=== PATIENT | male | born 1995 | race Caucasian/White ===

== ENCOUNTER 2017-11-06 16:49 | Emergency (ER) | payer OTHER ==
--- NOTE | 2017-11-06 17:20 | ED Physician Documentation ---
PD HPI FOCAL NEURO - Stated complaint Stated Complaint: POS SZ/TWITCHING - Chief complaint Chief Complaint: Neuro - History obtained from History obtained from: Patient - History of Present Illness Timing - onset: Other (For the last 2 weeks he has new twitching of the area around his eyes and occasional choking sensation. He had never had it before. He is not under a lot of stress. His boss is with him shows me a video, it looks like facial tics, he does not lose consciousness and he remembers all of it. It is symmetric.) Review of Systems Constitutional: denies: Fever, Chills Nose: denies: Rhinorrhea / runny nose, Congestion Cardiac: denies: Chest pain / pressure, Palpitations PD PAST MEDICAL HISTORY - Present Medications Home Medications: Ambulatory Orders Medication Instructions Recorded Confirmed Loratadine [Claritin] 5 mg PO 11/06/17 - Allergies Allergies/Adverse Reactions: Allergies Allergy/AdvReac Type Severity Reaction Status Date / Time No Known Drug Allergies Allergy Verified 11/06/17 17:01 PD ED PE NORMAL - Vitals Vital signs reviewed: Yes - General General: Alert and oriented X 3, No acute distress - HEENT HEENT: PERRL, EOMI, Pharynx benign - Neck Neck: Supple, no meningeal sign, No bony TTP - Neuro Neuro: Alert and oriented X 3, steward dishwasher 2-12 intact, Other (He occasionally has basically periorbital spasm bilaterally where he clenches his eyes shut briefly , he does not lose consciousness and it is symmetric. It looks more like a tic than anything else.) Eye Opening: Spontaneous Motor: Obeys Commands Verbal: Oriented GCS Score: 15 Results - Vitals Vitals: Vital Signs - 24 hr 11/06/17 11/06/17 16:58 18:38 Temperature 36.3 C L Heart Rate 86 85 Respiratory 16 16 Rate Blood Pressure 135/75 H 126/72 O2 Saturation 98 97 Oxygen O2 Source Room air - Labs Labs: Laboratory Tests 11/06/17 11/06/17 17:29 17:29 WBC 7.9 RBC 5.21 Hgb 14.6 Hct 42.3 MCV 81.1 MCH 28.0 MCHC 34.5 RDW 13.0 Plt Count 278 MPV 7.4 Neut # (Auto) 3.8 Lymph # (Auto) 3.2 [place] # (Auto) 0.7 Eos # (Auto) 0.2 Baso # (Auto) 0.1 Absolute Nucleated RBC 0.00 Nucleated RBC % 0.1 Sodium 137 Potassium 3.8 Chloride 101 Carbon Dioxide 27 Anion Gap 9.0 BUN 15 Creatinine 0.9 Estimated GFR (MDRD) 107 Glucose 107 H Calcium 9.4 Total Bilirubin 0.7 AST 28 ALT 57 Alkaline Phosphatase 68 Total Protein 7.9 Albumin 4.3 Globulin 3.6 Albumin/Globulin Ratio 1.2 Lipase 32 - Rads (name of study) CT Head Radiology: EMP read contemporaneously (normal) PD MEDICAL DECISION MAKING - ED course ED course: This is a 22-year-old with new onset what look like tics. I do not think they could be seizures as they are bilateral without loss of consciousness. 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 Discharge Date/Time: 11/06/17 18:46
[2017-11-06 17:34] LABS: BASOPHILS # (AUTO) 0.1 10^3/uL (0.0-0.1); BASOPHILS % (AUTO) 0.9 %; EOSINOPHILS # (AUTO) 0.2 10^3/uL (0.0-0.7); EOSINOPHILS % (AUTO) 2.9 %; HGB - HEMOGLOBIN 14.6 g/dL (14.0-18.0); LYMPHOCYTES # (AUTO) 3.2 10^3/uL (1.5-3.5); MEAN CORPUSCULAR HGB CONC 34.5 g/dL (32.0-36.0); MEAN CORPUSCULAR VOLUME 81.1 fL (80.0-94.0); MEAN PLATELET VOLUME 7.4 fL (7.4-11.4); MONOCYTES # (AUTO) 0.7 10^3/uL (0.0-1.0); MONOCYTES % (AUTO) 8.4 %; NEUTROPHILS # (AUTO) 3.8 10^3/uL (1.5-6.6); NEUTROPHILS % (AUTO) 47.8 %; PLT - PLATELET COUNT 278 10^3/uL (130-450); RED BLOOD COUNT 5.21 10^6/uL (4.70-6.10); WHITE BLOOD COUNT 7.9 x10^3/uL (4.8-10.8)
[2017-11-06 17:45] LABS: ALBUMIN 4.3 g/dL (3.2-5.5); ALBUMIN/GLOBULIN RATIO 1.2 (1.0-2.2); BILIRUBIN,TOTAL 0.7 mg/dL (0.2-1.0); CALCIUM 9.4 mg/dL (8.5-10.3); CREATININE 0.9 mg/dL (0.6-1.2); TOTAL PROTEIN 7.9 g/dL (6.7-8.2)
--- NOTE | 2017-11-06 18:14 | CT Report ---
Procedure Date: 11/06/2017 Accession Number: [id number] / [id number] Procedure: CT - Head W/O CPT Code: FULL RESULT: EXAM: CT HEAD EXAM DATE: 11/06/2017 06:02 PM. CLINICAL HISTORY: Facial tic. COMPARISON: None. TECHNIQUE: Multiaxial CT images were obtained from the foramen magnum to the vertex. Reformats: Coronal. IV contrast: None. In accordance with CT protocol optimization, one or more of the following dose reduction techniques were utilized for this exam: automated exposure control, adjustment of mA and/or KV based on patient size, or use of iterative reconstructive technique. FINDINGS: Parenchyma: No intraparenchymal hemorrhage. No evidence of mass, midline shift, or CT findings of infarction. Mroan-white differentiation is distinct. Extraaxial Spaces: Normal for age. No subdural or epidural collections identified. Ventricles: Normal in size and position. Sinuses and Orbits: Imaged paranasal sinuses, orbits, and mastoids show no significant abnormality. Bones: No evidence of fracture or calvarial defect. Other: None. IMPRESSION: No acute intracranial CT abnormality. RADIA
[2017-11-06 18:38] VITALS: BP 126/72
== END 2017-11-06 18:46 | disposition home or self-care (01) ==
LOC: ED 16:49
DX: F95.8 Other tic disorders (principal)
CPT/HCPCS: 36415; 70450; 80053; 83690; 85025; 87086; 99282; 99283

== ENCOUNTER 2019-09-25 21:43 | Emergency (ER) | payer OTHER ==
[2019-09-25 21:52] VITALS: BP 146/84
[2019-09-25 22:36] LABS: RAPID STREP SCREEN Negative (Negative)
[2019-09-25] MEDS ORDERED: AMOX/CLAV 875 MG/125 MG TABLET PO STA (23:20)
--- NOTE | 2019-09-25 23:57 | ED Physician Documentation ---
History of Present Illness - Stated complaint Stated Complaint: FEVER - Chief complaint Chief Complaint: General - History obtained from History obtained from: Patient - History of Present Illness Timing: How many days ago (2-3) Improved by: nothing Worsened by: no exacerbating factors - Additonal information Additional information: c/o 2-3 days fever, chills, diaphoresis, productive cough, sore throat Review of Systems Constitutional: reports: Fever, Chills, Sweats Ears: denies: Ear pain Throat: reports: Sore throat Cardiac: reports: Reviewed and negative Respiratory: reports: Cough. denies: Dyspnea, Wheezing GI: reports: Reviewed and negative PD PAST MEDICAL HISTORY - Past Medical History Cardiovascular: None Respiratory: None Neuro: None Endocrine/Autoimmune: None GI: None : None HEENT: None Psych: None Musculoskeletal: None Derm: None - Past Surgical History Past Surgical History: No - Present Medications Home Medications: Ambulatory Orders Medication Instructions Recorded Confirmed Amox/Clav 875/125 [Augmentin] 1 each PO Q12H #13 tablet 09/25/19 - Allergies Allergies/Adverse Reactions: Allergies Allergy/AdvReac Type Severity Reaction Status Date / Time No Known Drug Allergies Allergy Verified 09/25/19 21:52 - Social History Does the pt smoke?: Yes Smoking Status: Current some day smoker Does the pt drink ETOH?: Yes Does the pt have substance abuse?: No - Immunizations Immunizations are current?: Yes - POLST Patient has POLST: No PD ED PE NORMAL - Vitals Vital signs reviewed: Yes - General General: Alert and oriented X 3, No acute distress, Well developed/nourished - HEENT HEENT: Moist mucous membranes - Neck Neck: Supple, no meningeal sign - Cardiac Cardiac: RRR, No murmur - Respiratory Respiratory: No respiratory distress, Clear bilaterally - Abdomen Abdomen: Soft, Non tender PD ED PE EXPANDED - HEENT HEENT: Pharyngeal erythema, Tonsillar exudate Results - Vitals Vitals: Vital Signs - 24 hr 09/25/19 21:49 Temperature 35.5 C L Heart Rate 118 H Respiratory 18 Rate Blood Pressure 146/84 H O2 Saturation 97 Oxygen O2 Source Room air - Labs Labs: Laboratory Tests 09/25/19 22:20 Group A Strep Rapid Negative PD MEDICAL DECISION MAKING - ED course Complexity details: reviewed results, re-evaluated patient, considered differential, d/w patient Departure - Departure Disposition: Home, Self Care Clinical Impression: Pharyngitis Qualifiers: Pharyngitis/tonsillitis etiology: unspecified etiology Qualified Code(s): J02.9 - Acute pharyngitis, unspecified Condition: Good Instructions: ED Strep Pharyngitis Poss Prescriptions: Amox/Clav 875/125 [Augmentin] 1 each PO Q12H #13 tablet Discharge Date/Time: 09/25/19 23:24
== END 2019-09-25 23:24 | disposition home or self-care (01) ==
LOC: ED 21:43
DX: J02.9 Acute pharyngitis, unspecified (principal); R05 Cough; Z20.828 Contact with and (suspected) exposure to other viral communicable diseases; F17.200 Nicotine dependence, unspecified, uncomplicated
CPT/HCPCS: 81599; 87070; 87430; 99283; 99284; A9270

== ENCOUNTER 2021-05-18 20:11 | Emergency (ER) | payer OTHER ==
[2021-05-18] MEDS ORDERED: HYDROmorphone 1 MG/ML CARPUJECT IM STA (20:28)
--- NOTE | 2021-05-18 20:31 | ED Physician Documentation ---
History of Present Illness - Stated complaint Stated Complaint: RIGHT HIP PX - Chief complaint Chief Complaint: Ext Problem - Additonal information Additional information: 25-year-old male presents emergency department for evaluation of acute right hip pain. 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 There were no unusual or different activities today. When he got off of work and went home and was sitting he began feeling a deep ache in his right hip. He describes the pain is severe is unwilling to bear full weight on the leg. No fevers. Denies any falls or trauma. The hip and groin are painful with any movement passive or active. He denies any testicular or scrotal pain. Pain does not radiate and remains within the hip. No recent fevers. Review of Systems Constitutional: denies: Fever, Chills Ears: reports: Reviewed and negative Throat: reports: Reviewed and negative Cardiac: reports: Reviewed and negative Respiratory: reports: Reviewed and negative GI: reports: Reviewed and negative : reports: Reviewed and negative Skin: reports: Reviewed and negative Musculoskeletal: reports: Joint pain (right hip) Neurologic: reports: Reviewed and negative PD PAST MEDICAL HISTORY - Past Medical History Cardiovascular: None Respiratory: None Neuro: None Endocrine/Autoimmune: None GI: None : None HEENT: None Psych: None Musculoskeletal: None Derm: None - Past Surgical History Past Surgical History: No - Present Medications Home Medications: Ambulatory Orders Medication Instructions Recorded Confirmed HYDROcod/ACETAM 5/325 [[place] 5/325] 1 tablet PO BID PRN #10 tablet 05/18/21 Ibuprofen [Motrin] 600 mg PO Q6H PRN #30 tab 05/18/21 - Allergies Allergies/Adverse Reactions: Allergies Allergy/AdvReac Type Severity Reaction Status Date / Time No Known Drug Allergies Allergy Verified 05/18/21 20:19 - Social History Does the pt smoke?: Yes Smoking Status: Current some day smoker Does the pt drink ETOH?: Yes Does the pt have substance abuse?: No - Immunizations Immunizations are current?: Yes - POLST Patient has POLST: No PD ED PE EXPANDED - General General: Alert, Other (obese) - Cardiac Cardiac: Regular Rate, Radial strong equal, Pedal strong equal. No: Murmur Present - Respiratory Respiratory: Clear to ausultation alissa. No: Distress, Labored - Abdomen Abdomen: Normal Bowel sounds. No: Tender to palpation - Extremities Extremities: Right hip (no shortening, malrotation of the righ tleg. 2+ DP pulse. pain with palpation medially and laterally. no swelling, ecchymosis. 2+ femoral pulse. no LAD ) Results - Vitals Vitals: Vital Signs - 24 hr 05/18/21 20:15 Temperature 36.9 C Heart Rate 94 Respiratory 18 Rate Blood Pressure 138/83 H O2 Saturation 98 Oxygen O2 Source Room air - Rads (name of study) right hip/pelvis 2v Radiology: Final report received (Unremarkable radiographic exam of right hip.) PD MEDICAL DECISION MAKING - ED course Complexity details: reviewed results, re-evaluated patient, considered differential, d/w patient ED course: 25-year-old male presents the emergency department for sudden onset right hip pain. 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 He denies any falls or trauma there have been no fevers. Most of the pain in the hip is anterior and medial. He is able to bear partial weight. Given the lack of fevers recent infection my suspicion for septic arthritis is rather low. X-ray did not reveal an occult fracture And given lack of trauma will defer further imaging at this time. I do suspect that he has a hip sprain or possibly a labral tear. Patient was given a one-time dose of Decadron here in the ER. Will be r ecommended for ibuprofen over the weekend. Crutches to aid in ambulation. If not markedly improved on Friday may benefit from further evaluation through [facility]. He may need an MRI of the hip for further evaluation. Emergent return precautions were discussed for concerns of infection. Departure - Departure Disposition: Home, Self Care Clinical Impression: Acute right hip pain Condition: Stable Record reviewed to determine appropriate education?: Yes Instructions: ED Sprain Hip Prescriptions: Ibuprofen [Motrin] 600 mg PO Q6H PRN #30 tab PRN Reason: Pain HYDROcod/ACETAM 5/325 [[place] 5/325] 1 tablet PO BID PRN #10 tablet PRN Reason: Pain Comments: You are seen in the emergency department today for sudden pain in the right hip. We did not find any worrisome findings on your hip x-ray. Given the nature of your work with a lot of squatting, pushing and pulling I suspect that you have a hip sprain and/or possibly labral tear in the hip. You were given a one-time dose of oral steroid here in the emergency department that should help with pain over the next 2 to 3 days. I would like her to take ibuprofen with food 3 times a day for pain control. For severe pain you can use the Vicodin. We have given you crutches to help you get around. Use the Vicodin cautiously as it will make you more prone to falls. With a few days of rest and nonweightbearing of the hip I do anticipate that the pain is better. However it is important you follow-up closely with [facility]. You may benefit from further referral or evaluation. If symptoms are not markedly improving you may need an MRI of the hip which cannot be obtained through the emergency department. Return to the ER for fevers higher than 102, leg or hip swelling, any concerns of infection I am prescribing a short course of narcotic pain medication for you. These are potentially dangerous and addictive medications that should be used carefully. These medications may constipate you. Take an [id number] stool softener (docusate) twice daily with plenty of water while taking these medications. If you go 24 hours without a bowel movement, take [id number] miralax, per package instructions. Do not drink or drive while taking these medications. If you received narcotic or sedating medications while in the emergency department, do not drive for 24 hours. Store this medication in a safe, secure place and out of reach of children. It is a violation of federal law to give or sell this medication to another person or to use in a manner other than prescribed. The ED will not refill narcotic prescriptions, including prescriptions lost or stolen. To dispose of unwanted medications: 1. [facility] at [address] in [place] has a medication drop box. They accept prescription medications (in pill form) Friday through Friday 9:00 a.m. to 5:00 p.m. 2. The [facility] [place] [employer] accepts prescription medications (in pill form only) for disposal year round. Call for more information. 3. Contact the [facility] for the next [facility] sponsored prescription drug collection event. , [phone], or [phone]; Note that many narcotic pain relievers also contain Tylenol/acetaminophen. Please ensure that your total dose of acetaminophen from all sources does not ex ceed 3 g (3000 mg) per day. Your prescriptions [place] the Vicodin and the [place]
--- NOTE | 2021-05-18 20:45 | XRAY Report ---
PROCEDURE: Hip w/Pelvis 2-3V RT INDICATIONS: pain after running TECHNIQUE: AP pelvis with lateral view(s) of the right hip(s). COMPARISON: None. FINDINGS: Bones: No fractures or dislocations. Pelvic ring appears intact. No evidence of avascular necrosis of femoral head. No suspicious bony lesions. Soft tissues: The visualized bowel gas pattern is normal. No suspicious soft tissue calcifications. IMPRESSION: Unremarkable radiographic examination of right hip. Reviewed by: Carl Strong MD on 05/18/2021 8:44 PM PST Approved by: Carl Strong MD on 05/18/2021 8:44 PM PST Station ID: [id number]
[2021-05-18] MEDS ORDERED: DEXAMETHASONE 10 MG/ML VIAL PO STA (21:00)
[2021-05-18] MEDS ORDERED: CHERRY SYRUP 10 ML UDC PO ONE (21:00)
[2021-05-18 21:08] VITALS: BP 145/95
== END 2021-05-18 21:14 | disposition home or self-care (01) ==
LOC: ED 20:11
DX: M25.551 Pain in right hip (principal); F17.200 Nicotine dependence, unspecified, uncomplicated
CPT/HCPCS: 73502; 96372; 99282; 99284; A9270; J1170

== ENCOUNTER 2021-05-25 16:34 | Emergency (ER) | payer OTHER ==
[2021-05-25] MEDS ORDERED: KETOROLAC 15 MG/ML VIAL IVP STA (16:52)
--- NOTE | 2021-05-25 16:56 | ED Physician Documentation ---
PD HPI ABD PAIN - Stated complaint Stated Complaint: LT SIDE ABD PX/BLOOD IN URINE - Chief complaint Chief Complaint: Abd Pain - History obtained from History obtained from: Patient - Additional information Additional information: Sudden onset left lateral abdominal pain starting at 345 today while at rest with one episode of gross hematuria. No history of renal colic. He took some pain medication prior to arrival which was helpful. Review of Systems Ten Systems: 10 systems reviewed and negative Constitutional: denies: Fever, Chills GI: denies: Nausea, Vomiting, Constipation, Diarrhea : denies: Dysuria, Frequency PD PAST MEDICAL HISTORY - Past Medical History Cardiovascular: None Respiratory: None Neuro: None Endocrine/Autoimmune: None GI: None : None HEENT: None Psych: None Musculoskeletal: None Derm: None - Past Surgical History Past Surgical History: No - Present Medications Home Medications: Ambulatory Orders Medication Instructions Recorded Confirmed HYDROcod/ACETAM 5/325 [[place] 5/325] 1 tablet PO BID PRN #10 tablet 05/18/21 Ibuprofen [Motrin] 600 mg PO Q6H PRN #30 tab 05/18/21 Cefdinir 300 mg PO BID #20 cap 05/25/21 - Allergies Allergies/Adverse Reactions: Allergies Allergy/AdvReac Type Severity Reaction Status Date / Time No Known Drug Allergies Allergy Verified 05/25/21 16:43 - Social History Does the pt smoke?: Yes Smoking Status: Current some day smoker Does the pt drink ETOH?: Yes Does the pt have substance abuse?: No - Immunizations Immunizations are current?: Yes - POLST Patient has POLST: No PD ED PE NORMAL - Vitals Vital signs reviewed: Yes - General General: Alert and oriented X 3, Other (Uncomfortable) - Cardiac Cardiac: RRR, No murmur - Respiratory Respiratory: No respiratory distress - Abdomen Abdomen: Normal bowel sounds, Soft, Other (Mild left-sided abdominal tenderness without surgical signs) - Back Back: No CVA TTP, No spinal TTP - Derm Derm: Normal color, Warm and dry - Extremities Extremities: No edema, No calf tenderness / cord - Neuro Neuro: Alert and oriented X 3, Normal speech Results - Vitals Vitals: Vital Signs - 24 hr 05/25/21 05/25/21 16:39 19:45 Temperature 36.7 C Heart Rate 96 81 Respiratory 18 Rate Blood Pressure 144/98 H 146/102 H O2 Saturation 98 97 Oxygen O2 Source Room air - Labs Labs: Laboratory Tests 05/25/21 05/25/21 05/25/21 16:54 16:54 19:46 WBC 11.8 H RBC 5.17 Hgb 14.4 Hct 41.7 L MCV 80.7 MCH 27.9 MCHC 34.5 RDW 12.7 Plt Count 315 MPV 9.1 Neut # (Auto) 7.8 H Lymph # (Auto) 2.6 [place] # (Auto) 1.2 H Eos # (Auto) 0.2 Baso # (Auto) 0.0 Absolute Nucleated RBC 0.00 Nucleated RBC % 0.0 Sodium 136 Potassium 3.8 Chloride 101 Carbon Dioxide 25 Anion Gap 10.0 BUN 10 Creatinine 0.9 Estimated GFR (MDRD) 104 Glucose 109 H Calcium 8.9 Total Bilirubin 0.7 AST 22 ALT 43 Alkaline Phosphatase 61 Total Protein 8.2 Albumin 4.1 Globulin 4.1 Albumin/Globulin Ratio 1.0 Lipase 34 Urine Color RED/BLOODY Urine Clarity BLOODY Urine pH 7.0 Ur Specific [place] 1.025 Urine Protein 100 H Urine Glucose (UA) NEGATIVE Urine Ketones NEGATIVE Urine Occult Blood LARGE H Urine Nitrite POSITIVE H Urine Bilirubin NEGATIVE Urine Urobilinogen 1 (NORMAL) Ur Leukocyte Esterase NEGATIVE Urine RBC TNTC H Urine WBC 0-3 Ur Squamous Epith Cells NONE SEEN Urine Bacteria None Seen Ur Microscopic Review INDICATED Urine Culture Comments INDICATED PD MEDICAL DECISION MAKING - ED course ED course: 25-year-old gentleman comes in with hematuria and left flank pain which obviously would be most consistent with renal colic. He was given some ketorolac and a CT was done which was basically negative, during his time here though he had significant difficulty urinating despite significant amount of urine in his bladder on bedside ultrasound and eventually a Hsu was placed which he requested some anxiolysis for and was given some Versed and he had gross hematuria. This required hand irrigation to clear out the clots and eventually it became clear. Urinalysis consistent with UTI given the positive nitrites and he is started on antibiotics pending close follow-up. Departure - Departure Disposition: 01 Home, Self Care Clinical Impression: Hemorrhagic cystitis Condition: Good Record reviewed to determine appropriate education?: Yes Instructions: ED UTI Cystitis Male Prescriptions: Cefdinir 300 mg PO BID #20 cap Comments: I sent the prescription for the remainder of antibiotics [place] [facility] [place] You are seen today for flank pain and bloody urine. Of course the initial thought was that you would have a kidney stone, but we did a CAT scan and this was negative. During your time here though it became clear that you were retaining urine i.e. unable to urinate. A catheter was placed and subsequently found you to have a large volume of bloody urine in your bladder with clots that were obstructing the bladder. Your urinalysis and blood work would suggest this is related to a urinary tract infection and you were started on antibiotics for this. [place]. Return if you start to feel like he cannot urinate again. I woul d recommend that your doctor consider referring you to a urologist for consideration for cystoscopy and follow-up. We will culture your urine, the results should be done in 48-72 hours. If an antibiotic change is necessary we will call you. Return if worse in the meantime, especially if you develop increasing flank pain, fevers, or cannot keep down the medication.
[2021-05-25 16:58] LABS: BASOPHILS % (AUTO) 0.3 %; EOSINOPHILS # (AUTO) 0.2 10^3/uL (0.0-0.7); EOSINOPHILS % (AUTO) 1.4 %; HCT - HEMATOCRIT 41.7 % (42.0-52.0); HGB - HEMOGLOBIN 14.4 g/dL (14.0-18.0); LYMPHOCYTES # (AUTO) 2.6 10^3/uL (1.5-3.5); LYMPHOCYTES % (AUTO) 21.7 %; MEAN CORPUSCULAR HEMOGLOBIN 27.9 pg (27.0-31.0); MEAN CORPUSCULAR HGB CONC 34.5 g/dL (32.0-36.0); MEAN CORPUSCULAR VOLUME 80.7 fL (80.0-94.0); MEAN PLATELET VOLUME 9.1 fL (7.4-11.4); MONOCYTES # (AUTO) 1.2 10^3/uL (0.0-1.0); NEUTROPHILS # (AUTO) 7.8 10^3/uL (1.5-6.6); NEUTROPHILS % (AUTO) 66.3 %; PLT - PLATELET COUNT 315 10^3/uL (130-450); RED BLOOD COUNT 5.17 10^6/uL (4.70-6.10); RED CELL DISTRIBUTION WIDTH 12.7 % (12.0-15.0); WHITE BLOOD COUNT 11.8 x10^3/uL (4.8-10.8)
[2021-05-25 17:10] LABS: ALBUMIN 4.1 g/dL (3.2-5.5); BILIRUBIN,TOTAL 0.7 mg/dL (0.2-1.0); CALCIUM 8.9 mg/dL (8.5-10.3); CREATININE 0.9 mg/dL (0.6-1.2); POTASSIUM 3.8 mmol/L (3.5-5.0); TOTAL PROTEIN 8.2 g/dL (6.7-8.2)
--- NOTE | 2021-05-25 18:03 | CT Report ---
PROCEDURE: Abdomen/Pelvis WO INDICATIONS: L flank pain TECHNIQUE: Noncontrast 5 mm thick sections acquired from the diaphragms to the symphysis. 5 mm coronal and sagi ttal reformats were then performed. For radiation dose reduction, the following was used: automated exposure control, adjustment of mA and/or kV according to patient size. COMPARISON: Correlation is made with the recent hip plain films, 05/18/2021 FINDINGS: Image quality: Excellent. ABDOMEN: Lung bases: Lung bases are clear. Heart size is normal. Solid organs: Liver and spleen are normal in size. Gallbladder demonstrates no significant CT abnor mality. Pancreas is normal in contours. No adrenal nodules. Kidneys are normal in size, without hy dronephrosis or nephrolithiasis. Peritoneum and bowel: Unenhanced bowel loops demonstrate normal wall thickness and caliber. No free fluid or air. A normal appendix is incidentally noted. Nodes and vessels: No retroperitoneal or mesenteric adenopathy by size criteria. Aorta and inferior vena cava are normal in caliber. Miscellaneous: There is a trivial peribuccal hernia. PELVIS: Genitourinary: Bladder wall thickness is normal. Miscellaneous: No inguinal hernias or adenopathy. Bones: No suspicious bony lesions. No vertebral body compression fractures. IMPRESSION: Negative for kidney stones or obstructive uropathy. Reviewed by: Sohan Dao MD on 05/25/2021 5:02 PM [place] Approved by: Sohan Dao MD on 05/25/2021 5:02 PM [facility] Station ID: [id number]
[2021-05-25] MEDS ORDERED: MIDAZOLAM 2 MG/2 ML VIAL IVP STA (19:03)
[2021-05-25] MEDS ORDERED: LIDOCAINE 2% URO-JET 5 ML SYRINGE UR STA (19:03)
[2021-05-25 20:06] LABS: BILIRUBIN,URINE NEGATIVE (NEGATIVE); GLUCOSE, URINE (UA) NEGATIVE (NEGATIVE); KETONES,URINE (UA) NEGATIVE (NEGATIVE); LEUKOCYTE ESTERASE, URINE NEGATIVE (NEGATIVE); NITRITE,URINE POSITIVE (NEGATIVE); OCCULT BLOOD,URINE LARGE (NEGATIVE); PROTEIN,URINE 100 mg/dL (NEGATIVE); UROBILINOGEN,URINE 1 (NORMAL) E.U./dL (NORMAL)
[2021-05-25 20:09] LABS: CLARITY,URINE BLOODY (CLEAR)
[2021-05-25 20:13] LABS: BACTERIA,URINE None Seen /HPF (None Seen); RBC,URINE TNTC /HPF (0-5); SQUAMOUS EPITHELIAL CELL,UR NONE SEEN (<= Few); WBC,URINE 0-3 /HPF (0-3)
[2021-05-25] MEDS ORDERED: cefTRIAXone 1 GM in SODIUM CHLORIDE 0.9% MINIBAG 100 ML IV STA (20:57)
[2021-05-25] MEDS ORDERED: cefTRIAXone 1 GM VIAL ONE (21:16)
[2021-05-25 22:08] VITALS: BP 146/111
--- NOTE | 2021-05-25 22:43 | ED Physician Documentation ---
ED Addendum - Addendum Addendum: 05/25/21 22:[address] Garay left I was informed that the patient's pharmacy was not open until Friday. The patient requested that I send a prescription to [facility] in [place] therefore we canceled the original [place] [facility] [place] and sent to cefdinir to [facility]
== END 2021-05-25 22:07 | disposition home or self-care (01) ==
LOC: ED 16:34
DX: N30.91 Cystitis, unspecified with hematuria (principal); R33.9 Retention of urine, unspecified; F17.200 Nicotine dependence, unspecified, uncomplicated
CPT/HCPCS: 36415; 51702; 80053; 81001; 81003; 83690; 85025; 87086; 99284

== ENCOUNTER 2022-05-03 10:36 | Emergency (ER) | payer OTHER ==
[2022-05-03 10:50] VITALS: BP 121/89
[2022-05-03 11:50] LABS: B. PARAPERTUSSIS- RESP PCR PAN NOT DETECTED; B. PERTUSSIS- RESP PCR PANEL NOT DETECTED; C. PNEUMONIAE- RESP PCR PANEL NOT DETECTED; CORONAVIRUS 229E-RESP PCR NOT DETECTED; CORONAVIRUS HKU1-RESP PCR NOT DETECTED; CORONAVIRUS NL63-RESP PCR NOT DETECTED; CORONAVIRUS OC43-RESP PCR NOT DETECTED; HUMAN METAPNEUMOVIRUS NOT DETECTED; INFLUENZA A- RESP PCR PANEL NOT DETECTED; INFLUENZA B - RESP PCR PANEL NOT DETECTED; M. PNEUMONIAE- RESP PCR PANEL NOT DETECTED; PARAINFLUENZA VIRUS 1 NOT DETECTED; PARAINFLUENZA VIRUS 2 NOT DETECTED; PARAINFLUENZA VIRUS 3 NOT DETECTED; PARAINFLUENZA VIRUS 4 NOT DETECTED; RHINOVIRUS/ENTEROVIRUS DETECTED; RSV- RESP PCR PANEL NOT DETECTED; SARS-CoV-2 -RESP PCR PANEL NOT DETECTED
--- NOTE | 2022-05-03 12:47 | ED Physician Documentation ---
History of Present Illness - Stated complaint Stated Complaint: N/V/D CONGESTION - Chief complaint Chief Complaint: General - History obtained from History obtained from: Patient - Additonal information Additional information: Previously healthy 26-year-old gentleman has been sick for about 4 days with cough, sore throat, fevers and chills and body aches and headache. His remade has a similar illness. [place]. Review of Systems Constitutional: reports: Fever, Chills Nose: reports: Rhinorrhea / runny nose Throat: reports: Sore throat Respiratory: reports: Cough. denies: Dyspnea GI: reports: Vomiting, Diarrhea. denies: Abdominal Pain PD PAST MEDICAL HISTORY - Past Medical History Past Medical History: Yes Cardiovascular: None Respiratory: None Neuro: None Endocrine/Autoimmune: None GI: None : None HEENT: None Psych: None Musculoskeletal: None Derm: None - Past Surgical History Past Surgical History: No - Present Medications Home Medications: Ambulatory Orders Medication Instructions Recorded Confirmed HYDROcod/ACETAM 5/325 [Patton 5/325] 1 tablet PO BID PRN #10 tablet 05/18/21 Ibuprofen [Motrin] 600 mg PO Q6H PRN #30 tab 05/18/21 Cefdinir 300 mg PO BID #20 cap 05/25/21 Benzonatate [Tessalon] 200 mg PO TID PRN #20 cap 05/03/22 Loperamide [Imodium] 2 mg PO QID PRN #10 cap 05/03/22 Ondansetron Odt [Zofran] 4 mg TL Q6H PRN #10 tablet 05/03/22 - Allergies Allergies/Adverse Reactions: Allergies Allergy/AdvReac Type Severity Reaction Status Date / Time No Known Drug Allergies Allergy Verified 05/03/22 10:50 - Social History Does the pt smoke?: Yes Smoking Status: Current every day smoker Does the pt drink ETOH?: Yes Does the pt have substance abuse?: No - Immunizations Immunizations are current?: Yes - POLST Patient has POLST: No PD ED PE NORMAL - Vitals Vital signs reviewed: Yes (Mild resting tachycardia) - General General: Alert and oriented X 3, No acute distress - HEENT HEENT: Other (Red tonsillar pillars and uvula without exudates) - Neck Neck: Supple, no meningeal sign, No bony TTP - Cardiac Cardiac: RRR, No murmur - Respiratory Respiratory: No respiratory distress, Clear bilaterally - Abdomen Abdomen: Normal bowel sounds, Soft, Non tender - Back Back: No CVA TTP - Derm Derm: Normal color, Warm and dry - Neuro Neuro: Alert and oriented X 3, Normal speech Results - Vitals Vitals: Vital Signs - 24 hr 05/03/22 10:47 Temperature 36.5 C Heart Rate 108 H Respiratory 20 Rate Blood Pressure 121/89 H O2 Saturation 97 Oxygen O2 Source Room air - Labs Labs: Laboratory Tests 05/03/22 10:52 Nasal Adenovirus (PCR) NOT DETECTED Nasal B. parapertussis DNA (PCR) NOT DETECTED Nasal Coronavir 229E PCR NOT DETECTED Nasal Coronavir HKU1 PCR NOT DETECTED Nasal Coronavir NL63 PCR NOT DETECTED Nasal Coronavir OC43 PCR NOT DETECTED Nasal Enterovir/Rhinovir PCR DETECTED A Nasal Influenza B PCR NOT DETECTED Nasal Influenza A PCR NOT DETECTED Nasal Parainfluen 1 PCR NOT DETECTED Nasal Parainfluen 2 PCR NOT DETECTED Nasal Parainfluen 3 PCR NOT DETECTED Nasal Parainfluen 4 PCR NOT DETECTED Nasal RSV (PCR) NOT DETECTED Nasal B.pertussis DNA PCR NOT DETECTED Nasal C.pneumoniae (PCR) NOT DETECTED Cristobal Human Metapneumo PCR NOT DETECTED Nasal M.pneumoniae (PCR) NOT DETECTED Nasal SARS-CoV-2 (PCR) NOT DETECTED PD Medical Decision Making - ED course ED course: 26-year-old gentleman with viral respiratory infection, [employer] PCR panel positive for for rhinovirus/enterovirus which is explanatory. Departure - Departure Disposition: 01 Home, Self Care Clinical Impression: Enterovirus infection Condition: Good Record reviewed to determine appropriate education?: Yes Instructions: ED Viral Syndrome Prescriptions: Loperamide [Imodium] 2 mg PO QID PRN #10 cap PRN Reason: Diarrhea Benzonatate [Tessalon] 200 mg PO TID PRN #20 cap PRN Reason: Cough Ondansetron Odt [Zofran] 4 mg TL Q6H PRN #10 tablet PRN Reason: Nausea / Vomiting Comments: Your PCR panel was positive for rhinovirus/enterovirus which is a flulike illness. You will get better, but return for new or worsening symptoms. I am prescribing some medication for the cough, diarrhea, and nausea. Follow-up with your PCM on Friday if not better. Forms: Activity restrictions
== END 2022-05-03 12:48 | disposition home or self-care (01) ==
LOC: ED 10:36
DX: J98.8 Other specified respiratory disorders (principal); B34.1 Enterovirus infection, unspecified; Z20.822 Contact with and (suspected) exposure to COVID-19
CPT/HCPCS: 87633; 99283

== ENCOUNTER 2022-11-07 17:00 | Emergency (ER) | payer OTHER ==
--- NOTE | 2022-11-07 17:19 | ED Physician Documentation ---
PD HPI SKIN - Stated complaint Stated Complaint: SPIDER BITE - Chief complaint Chief Complaint: Wound - History obtained from History obtained from: Patient - History of Present Illness Timing - onset: How many days ago (several) Timing - duration: Days Timing - details: Gradual onset, Still present (was getting bigger each day and today in shower it draine fluid/purulence. Less painful here than prior to dtdaoy.) Location: Other (right armpit distal to the axilla per se.) Quality / character: Painful, Discolored (red), Raised Associated symptoms: No: Fever, Myalgias Contributing factors: Other (he is not aware of insect bite per se. Considers if pimle or normal skin lesions initially.) Review of Systems Constitutional: denies: Fever, Chills PD PAST MEDICAL HISTORY - Past Medical History Cardiovascular: None Respiratory: None Neuro: None Endocrine/Autoimmune: None GI: None : None HEENT: None Psych: None Musculoskeletal: None Derm: None - Past Surgical History Past Surgical History: No - Present Medications Home Medications: Ambulatory Orders Medication Instructions Recorded Confirmed Levothyroxine Sodium [Synthroid] 50 mcg PO DAILY 11/07/22 11/07/22 Levothyroxine Sodium [Synthroid] 200 mcg PO DAILY 11/07/22 11/07/22 Mupirocin 2% Oint [Bactroban 2% 1 applic TOP TID #15 gm 11/07/22 Oint] Sulfamethox/Trimeth 800/160 1 each PO BID #12 tablet 11/07/22 [Bactrim Ds 800/160] - Allergies Allergies/Adverse Reactions: Allergies Allergy/AdvReac Type Severity Reaction Status Date / Time No Known Drug Allergies Allergy Verified 11/07/22 17:11 - Social History Does the pt smoke?: Yes Smoking Status: Current every day smoker Does the pt drink ETOH?: Yes Does the pt have substance abuse?: No - Immunizations Immunizations are current?: Yes - POLST Patient has POLST: No PD ED PE NORMAL - Vitals Vital signs reviewed: Yes - General General: Alert and oriented X 3, No acute distress, Well developed/nourished - Cardiac Cardiac: RRR, No murmur - Respiratory Respiratory: Clear bilaterally - Back Back: No CVA TTP - Derm Derm: Normal color, Warm and dry, Other (right medial upper arm just distal to the axilla itself with rounded red tender skin sore/absess that is mainly deflated without fluctuanc. Surrounding redness and tender though.) Results - Vitals Vitals: Oxygen O2 Source Room air PD Medical Decision Making - ED course Complexity details: considered differential (developing abscess under right upper arm, that drained at home today. Presume might improved on own but still have infected apearance so with antibiotics too. ), d/w patient Departure - Departure Disposition: Home, Self Care Clinical Impression: Axillary abscess Condition: Stable Record reviewed to determine appropriate education?: Yes Instructions: ED Staph Infec Abx Tx Only Prescriptions: Sulfamethox/Trimeth 800/160 [Bactrim Ds 800/160] 1 each PO BID #12 tablet Mupirocin 2% Oint [Bactroban 2% Oint] 1 applic TOP TID #15 gm Comments: Can be hard to say the initial irritation or effect on the skin that allow germs into the area. It does look like a small skin abscess at this point. It is good that it is draining some already as that is a good portion of it getting better. We will continue with oral and topical antibiotics over the next several days until this well resolves. Bactrim antibiotic twice daily for the next 4 to 6 days. Mupirocin topical antibiotic 2-3 times daily to the area. Tylenol ibuprofen if needed for pains. Recheck if not improving well over the next several days and resolved by a week at most. I sent your prescriptions to [facility] pharmacy. Discharge Date/Time: 11/07/22 17:40
[2022-11-07 17:20] VITALS: BP 144/90
[2022-11-07] MEDS ORDERED: SULFAMETH/TRIMETH DS 800/160 MG TABLET PO STA (17:30)
== END 2022-11-07 17:40 | disposition home or self-care (01) ==
LOC: ED 17:00
DX: L02.411 Cutaneous abscess of right axilla (principal); F17.200 Nicotine dependence, unspecified, uncomplicated
CPT/HCPCS: 99282; 99283; A9270

== ENCOUNTER 2022-11-19 10:09 | Outpatient (CLI) | payer OTHER ==
--- NOTE | 2022-11-19 10:45 | Sleep Patient Instructions ---
Sleep Center Visit Summary - Patient Visit Information Reason for Visit: Initial consult for evaluation of sleep disordered breathing and other sleep issues. - Patient Instructions Instructions Attached: Sleep Study, Sleep Clinic Visit, Sleep Study Home Monitor Additional Instructions: You will be completing a sleep study, either an in-lab polysomnography (PSG) or home sleep study (HST). You will follow-up in the sleep care office after the sleep study is completed to hear the results and talk about therapy, if needed. You will be called by our office staff to schedule this appointment, but you may contact us with any questions. - Clinic Information Contact: [facility] [address] [place] [address] [email or web address] T: [phone]
--- NOTE | 2022-11-19 10:51 | SLEEP CARE CONSULTATION ---
Information from patient questionnaire entered by Rita Still. I have reviewed and concur with the information entered by Rita Still. This document represents the service I personally performed and the decisions made by me, Danyell Carter ARNP. History of Present Illness Service Date and Time: 11/19/2022 1009 Reason for Visit: New patient Chief Complaint: reports: Unrefreshed sleep, Snoring Date of Onset: 2YRS Usual bedtime: 0300 Time it takes to fall asleep: 30MIN Snores at night: Yes Observed to quit breathing while asleep: No Sleeps alone due to snoring: No Number of times waking at night: 1 Reasons for waking at night: denies: Choking, Snoring, Gasping for air Toss, Turn, or Twitch while sleeping: Yes Recalls having dreams: Yes Usually gets out of bed at: 5948-9865 Feels refreshed in the morning: No (occasionally will feel rested) Morning headache: No Sleepy or fatigued during the day: Yes Ever fallen asleep while driving: No Takes day naps: No Prior sleep studies: Yes Year and Where: 07/13/20 [facility]- split night Type of Sleep Study: Polysomnography Additional HPI information: I had the pleasure of seeing BLAISE LOPEZ today regarding the possibility of him having a sleep disorder. His current complaints are unrefreshed sleep and snoring. He was previously diagnosed with sleep apnea in 06/2020 through [facility], a split night showed severe obstructive sleep apnea with an AHI 36.8 and pablo oxygen of 54%. His titration showed optimal control of apneas at 16 cmH2O. He was never set up on a CPAP. 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 He states his only changes are that he is no longer "falling out of bed" or sleep walking. He sleeps alone so he does not know if he is having pauses in breathing. He knows he snores and does not feel refreshed when getting up in the morning. He says his weight has fluctuated since his last sleep study but he thinks he is down right now. 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 Patient is Single and lives in . Have you smoked in the past 12 months: No (Vaping but working on quitting) Years of smokin Quit date: 2019 Alcohol use: Yes Alcohol amount and frequency: 1-2 ONCE A MONTH Caffeine use: Yes Caffeine amount and frequency: 1-2 A DAY Family History Family history of sleep disordered breathing: Yes Family Hx Sleep Apnea: Mother: Snoring, Father: Snoring, Sibling: Snoring Allergies and Home Medications Known drug allergies: No Drug allergies reviewed: Yes Home medication list reviewed: Yes Allergy and home medication list: Allergies No Known Drug Allergies Allergy (Verified 11/18/22 15:11) Medications: Synthroid 275 mcg daily Green Tea vitamins Review of Systems Weight gain over past 5 years: 65 Cardiovascular: denies: high blood pressure Respiratory: denies: shortness of breath Gastrointestinal: denies: heartburn Neurological: denies: headaches, head trauma Psychiatric: denies: anxiety, depression Ear/Nose/Throat: reports: wisdom teeth removed. denies: injury to nose, tonsil lectomy Endocrine: reports: thyroid disease Physical Exam Vital signs obtained and entered by: RITA Gallego MA Blood Pressure: 118/76 (LEFT ARM) Cuff size: regular Heart Rate: 84 O2 Saturation: 96 Height: 5 ft 9 in Weight: 318 lb 12.8 oz Body Mass Index: 47.0 BMI Classification: Morbidly Obese Neck circumference: 20.5 Mouth and throat: narrow oropharynx Soft palate: normal Hard palate: normal Uvula: normal Uvula visualization: 25% Mallampati Class III Tongue: enlarged in size with teeth prado on lateral edges Tonsils: 2+ Neck: normal w/o lymphadenopathy or thyromegaly Heart: regular rate and rhythm Lungs: clear bilaterally Impression and Plan 1. Suspected Obstructive Sleep Apnea-Hypopnea Syndrome, as previously diagnosed and as suggested by a history of loud and irregular snoring and unrefreshed sleep. Narrow oropharynx and obesity are common predisposing factors for obstructive sleep apnea-hypopnea syndrome. I recommend proceeding to polysomnography to confirm the diagnosis and to assess severity. If the patient has significant sleep disordered breathing, a manual CPAP titration study will also be performed to find the optimal treatment pressure. I informed the patient of what the sleep studies involve and after some discussion, obtained agreement to proceed. The pathophysiology of obstructive sleep apnea-hypopnea syndrome was discussed with the patient and health risks of cardiovascular and cerebrovascular disease if not treated. 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 Patient agreed to plan. * Schedule polysomnography +- manual CPAP titration study and return in 1-2 weeks after the study to discuss result and initiate therapy. * Avoid long distance driving or driving when feeling sleepy. * Avoid alcohol, sedative and muscle relaxant around bedtime. * Attempt to lose weight. * Review instructions provided by trained office staff on how to prepare for the sleep study. * Return for follow-up after sleep study completed. Counseling Topics: Weight loss health impact Visit Type: In Office Time Spent with Patient (minutes): 31 Provider Statement: I spent 100% of the Face to Face Visit with the patient with greater than 50% spent counseling the patient and coordination of care.
[2022-11-19 10:53] VITALS: BP 118/76
== END 2022-11-19 10:10 | disposition home or self-care (01) ==
LOC: SC 10:09
PROVIDERS: ATTEND Nurse Practitioner Family
DX: G47.33 Obstructive sleep apnea (adult) (pediatric) (principal); E66.01 Morbid (severe) obesity due to excess calories; F17.200 Nicotine dependence, unspecified, uncomplicated; Z68.42 Body mass index [BMI] 45.0-49.9, adult
CPT/HCPCS: 99203; 99212

== ENCOUNTER 2023-01-28 19:21 | Outpatient (CLI) | payer OTHER | END 2023-01-28 19:22 | disposition home or self-care (01) | LOC: SC 19:21 | PROVIDERS: ATTEND Nurse Practitioner Family | DX: G47.33 Obstructive sleep apnea (adult) (pediatric) (principal); E66.01 Morbid (severe) obesity due to excess calories; Z68.42 Body mass index [BMI] 45.0-49.9, adult | CPT/HCPCS: 95810 ==

== ENCOUNTER 2023-03-18 13:51 | Outpatient (CLI) | payer OTHER ==
--- NOTE | 2023-03-18 14:17 | Sleep Patient Instructions ---
Sleep Center Visit Summary - Patient Visit Information Reason for Visit: Sleep study followup - Patient Instructions Instructions Attached: CPAP Dc, CPAP Additional Instructions: You are being started on CPAP therapy with pressure setting at 4-15 cmH2O. You will need to call the sleep care office to set up your follow up once you have your APAP machine and we will schedule a visit to check compliance and response to therapy at that time. You may call the office with any concerns about pressure feeling too low or too much for adjustment, if needed. You should contact DME supplier for any questions or concerns about mask or equipment. Please call office to schedule a follow up appointment in the sleep care office one month after obtaining new device. - Clinic Information Contact: [facility] [address] [place] [address] [email or web address] T: [phone]
--- NOTE | 2023-03-18 14:20 | SLEEP CARE CONSULTATION ---
Information from patient questionnaire entered by Rita Still. I have reviewed and concur with the information entered by Rita Still. This document represents the service I personally performed and the decisions made by , Danyell Carter ARNP. History of Present Illness Service Date and Time: 03/18/2023 1351 Initial [place] Sleepiness Scale score: 5 (11/19/22) Current [place] Sleepiness Scale score: 5 (03/18/23) Additional HPI information: BLAISE LOPEZ returns for follow up and results of the recently performed polysomnography. The sleep study showed severe obstructive sleep apnea with an average AHI of 33 and pablo oxygen saturation of 70%. I explained the pathophysiology behind obstructive sleep apnea. We then spent quite a bit of time discussing different treatment options. For mild obstructive sleep apnea, surgery and oral appliance are alternatives to nasal CPAP therapy but in moderate or severe cases, nasal CPAP is the most effective and reliable treatment. I reviewed the impact of weight changes on sleep apnea and strongly recommended losing weight. After some discussion, the patient opted to go with the nasal CPAP therapy. Nasal autoCPAP set at 4-15 cmH20 will be ordered with rationale explained. A manual titration study will be ordered if unable to find optimal pressure with office adjustments. I explained how CPAP machine works and what to expect when using the machine. Using CPAP every night in order to get used to it was emphasized. Patient advised to put CPAP mask on before getting into bed so as not to fall asleep without CPAP. To assist acclimation to CPAP use, it could also be used for a short time during day while reading or watching TV. The patient was instructed to call the CPAP supplier to discuss any mechanical problem that may occur. If the mask given is uncomfortable or is difficult to keep on through the night even with adjustment, contact the CPAP supplier as many will replace with another mask style if notified before 30 days. If snoring or perceives is not getting enough air or too much air from the machine, notify this office. Patient counseled not drink alcohol less than 4 hours before bedtime as it can increase snoring and apnea. Patient was cautioned about risks of drowsy driving until sleepiness symptoms resolve. Patient denies drowsy driving. Sleep Study - Results Type of Sleep Study: Polysomnography (COMPLETED 01/28/23) Prior sleep studies: Yes Year and Where: 07/13/20 [facility]- split night Polysomnography/Home Sleep Study results: IMPRESSION: The quality of the study is good. The patient had normal sleep efficiency. The sleep architecture was abnormal for sleep fragmentation and reduced amount of time spent in slow wave sleep (N3). Respiratory monitoring showed severe obstructive sleep apnea-hypopnea (AHI = 33.0) associated with frequent arousals, oxyhemoglobin desaturation and moderate hypoxia (pablo oxygen saturation of 70 %). Baseline oxygen saturation was normal. The respiratory events occurred mainly during supine sleep (supine AHI = 119.0; non-supine = 18.14). Snore was moderate to loud in intensity. There was no significant periodic leg movement of sleep. Cardiac rhythm was normal sinus rhythm without significant arrhythmia. No abnormal behavior (parasomnia) observed during the night. Allergies and Home Medications Known drug allergies: No Drug allergies reviewed: Yes Home medication list reviewed: Yes (no changes) Allergy and home medication list: Allergies No Known Drug Allergies Allergy (Verified 03/17/23 10:02) Review of Systems Review of systems same as previous: Yes (NO CHANGE) Physical Exam Vital signs obtained and entered by: RITA Gallego MA Blood Pressure: 122/70 (LEFT ARM) Cuff size: regular Heart Rate: 109 O2 Saturation: 94 Height: 5 ft 10 in Weight: 325 lb 9.6 oz Body Mass Index: 46.7 BMI Classification: Morbidly Obese Impression and Plan 1. Obstructive Sleep Apnea-Hypopnea Syndrome, severe, with lowest oxygen saturation of 70%. Obviously this is the cause of the patients symptoms of unrefreshed sleep, and excessive daytime sleepiness. As mentioned above, the patient will be started on nasal autoCPAP therapy with pressure set at 4-15 cmH2 O. A manual titration study will be completed if unable to find optimal treatment pressure with office adjustments. Compliance guidelines also reviewed. A copy of compliance guidelines will be given for reference at check out. Because the apnea is more severe supine, I instructed to avoid sleeping supine using pillow positioning until able to start CPAP use. 2. Hypoxemia, moderate, with a pablo oxygen saturation of 70% and 59.6 minutes spent under 90%. The baseline oxygen saturation was normal with an average oxygen saturation of 92%. 3. Obesity, unspecified. Currently patients BMI is 46.7. Obesity increases the risk of apnea, CPAP pressure requirements and overall health risks especially cardiovascular and diabetes. Thus patient is advised to lose weight. * Nasal auto CPAP therapy, pressure at 4-15 cm H2O. * Attempt to lose weight. * Avoid alcohol consumption near bedtime. * Avoid supine sleep until using CPAP. * The patient is again cautioned about driving until sleepiness completely resolves. * Return one month after CPAP obtained. I will assess response to therapy and compliance at that time. Counseling Topics: Weight loss health impact Prescriptions: Auto CPAP Visit Type: In Office Time Spent with Patient (minutes): 20 Provider Statement: I spent 100% of the Face to Face Visit with the patient with greater than 50% spent counseling the patient and coordination of care.
[2023-03-18 14:21] VITALS: BP 122/70; O2SAT 94
== END 2023-03-18 13:52 | disposition home or self-care (01) ==
LOC: SC 13:51
PROVIDERS: ATTEND Nurse Practitioner Family
DX: G47.33 Obstructive sleep apnea (adult) (pediatric) (principal); R09.02 Hypoxemia; E66.01 Morbid (severe) obesity due to excess calories; Z68.42 Body mass index [BMI] 45.0-49.9, adult
CPT/HCPCS: 99212; 99213

== ENCOUNTER 2023-07-11 09:19 | Outpatient (CLI) | payer OTHER ==
--- NOTE | 2023-07-11 09:53 | Sleep Patient Instructions ---
Sleep Center Visit Summary - Patient Visit Information Reason for Visit: First compliance follow-up - Patient Instructions Additional Instructions: You were here for follow up of CPAP therapy. You will be continued on CPAP therapy with pressure at 7-10 cmH2O. Please let us know if the pressure change is uncomfortable and we can make further adjustments of the pressure. You should follow up with sleep care in 1-2 months. You may contact us sooner for any questions or concerns. - Clinic Information Contact: [facility] [address] [place] [address] [email or web address] T: [phone]
--- NOTE | 2023-07-11 09:57 | SLEEP CARE CONSULTATION ---
Information from patient questionnaire entered by Brant Still. I have reviewed and concur with the information entered by Brant Still. This document represents the service I personally performed and the decisions made by , Danyell Carter ARNP. History of Present Illness Service Date and Time: 07/11/2023918 Previous diagnosis: Severe, Obstructive Sleep Apnea-Hypopnea Syndrome AHI: 33 (01/28/23) Reason for follow up: first compliance Equipment type: CPAP (RESMED AIRSENSE 11 AUTO SET SETUP DATE 04/22/23) Equipment obtained from: Other ([facility]; getting supplies) Mask style: Full face Backup mask available: No (will keep old mask when replaced) Prior sleep studies: Yes Year and Where: 07/13/20 [facility]- split night Type of Sleep Study: Polysomnography (COMPLETED 01/28/23) HPI additional information: BLAISE LOPEZ was diagnosed to have severe, AHI 33, obstructive sleep apnea- hypopnea syndrome and returned today for CPAP therapy first compliance follow- up. Sleep Study - Results Type of Sleep Study: Polysomnography (COMPLETED 01/28/23) Prior sleep studies: Yes Year and Where: 07/13/20 [facility]- split night CPAP Compliance Data - Data Reviewed with Patient Average duration of nightly device use: 2 HRS 5 MINS Compliance rate %: 3 (06/09/23-07/08/23; 15/30 days used) Current pressure setting (cmH2O): 4-15 (median 7.1, avg 9.9, max 10.5) Average residual AHI: 0.9 Central apnea: 0 Obstructive apnea: 0.3 Hypopnea: 0.3 Average large leak: 1.5 L/min Subjective Missed days of use due to: reports: travel, other (taking off in sleep) Patient concerns: denies: aerophagia, mask discomfort, air blowing in eyes, mask leak noise, condensation in mask/hose, nasal congestion, dry mouth, nose, throat, epistaxis Observed to snore while using device: No Current pressure setting perceived as: comfortable On therapy, patient: reports: sleeping better, awakening more refreshed, more rested overall. denies: drowsiness while driving Initial [place] Sleepiness Scale score: 5 (11/19/22) Current [place] Sleepiness Scale score: 2 (07/11/23) Allergies and Home Medications Known drug allergies: No Drug allergies reviewed: Yes Home medication list reviewed: Yes (no changes) Allergy and home medication list: Allergies No Known Drug Allergies Allergy (Verified 07/09/23 14:42) Review of Systems Review of systems same as previous: Yes (NO CHANGE) Physical Exam Vital signs obtained and entered by: BRANT Gallego MA Blood Pressure: 144/94 (LEFT ARM) Cuff size: regular Heart Rate: 92 O2 Saturation: 100 Height: 5 ft 10 in Weight: 319 lb 9.6 oz Body Mass Index: 45.8 BMI Classification: Morbidly Obese Impression and Plan 1. Obstructive Sleep Apnea-Hypopnea Syndrome, severe, with poor treatment compliance and good apnea control. On CPAP therapy, the patient has better sleep quality and is more rested overall. 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 He is also finding that he will take the mask off while asleep and does not realize until he gets up in the morning. We discussed ways to try and make sure the mask stays on at night to help improve his compliance. He voiced understanding. He has no complaints about mask use. 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 We will see if we can get him in for another compliance visit in a month, otherwise we will see him when he returns in about 3 months. The patients pressure will be changed to autoCPAP 7-10 cmH20 to reflect pressure being used. Patient advised to contact me if pressure change is uncomfortable so that it can be adjusted. Goals for apnea control discussed. Patient's apnea severity and rationale for treatment to reduce apnea, improve sleep quality and reduce cardiovascular and cerebrovascular events was reviewed. 2. Obesity, unspecified. Currently patients BMI is 45.8. Obesity increases the risk of apnea, CPAP pressure requirements and overall health risks especially cardiovascular and diabetes. Thus patient is advised to lose weight. * Change auto CPAP pressure to 7-10 cmH2O * Notify me if snoring with mask or feeling that the pressure is too much or too little * Attempt to lose weight * Call this office if any problems using CPAP * Return for follow up in 1-2 months, or sooner if concerns arise Counseling Topics: Spare mask, Weight loss health impact Follow up with Sleep Care in: 1-2 months Visit Type: In Office Time Spent with Patient (minutes): 16 Provider Statement: I spent 100% of the Face to Face Visit with the patient with greater than 50% spent counseling the patient and coordination of care.
[2023-07-11 10:05] VITALS: BP 144/94; O2SAT 100
== END 2023-07-11 09:20 | disposition home or self-care (01) ==
LOC: SC 09:19
PROVIDERS: ATTEND Nurse Practitioner Family
DX: G47.33 Obstructive sleep apnea (adult) (pediatric) (principal); E66.01 Morbid (severe) obesity due to excess calories; Z68.42 Body mass index [BMI] 45.0-49.9, adult
CPT/HCPCS: 99212

== ENCOUNTER 2023-08-12 08:04 | Outpatient (CLI) | payer OTHER ==
--- NOTE | 2023-08-12 08:41 | Sleep Patient Instructions ---
Sleep Center Visit Summary - Patient Visit Information Reason for Visit: 1 month follow up - Patient Instructions Additional Instructions: You were here for follow up of CPAP therapy. You will be continued on CPAP therapy with pressure at 7-10 cmH2O. You should follow up with sleep care in 3 months. You may contact us sooner for any questions or concerns. - Clinic Information Contact: [facility] [address] [place] [address] [email or web address] T: [phone]
--- NOTE | 2023-08-12 08:47 | SLEEP CARE CONSULTATION ---
Information from patient questionnaire entered by Brant Still. I have reviewed and concur with the information entered by Brant Still. This document represents the service I personally performed and the decisions made by , Danyell Carter ARNP. History of Present Illness Service Date and Time: 08/12/2023 0804 Previous diagnosis: Severe, Obstructive Sleep Apnea-Hypopnea Syndrome AHI: 33 (01/28/23) Reason for follow up: one month (F/U) Equipment type: CPAP (RESMED AIRSENSE 11 AUTO SET SETUP DATE 04/22/23) Equipment obtained from: Other ([facility]; getting supplies) Mask style: Full face Backup mask available: No (will keep old mask when replaced) Last cushion change: rotates cushions Prior sleep studies: Yes Year and Where: 07/13/20 [facility]- split night Type of Sleep Study: Polysomnography (COMPLETED 01/28/23) HPI additional information: BLAISE LOPEZ was diagnosed to have severe, AHI 33, obstructive sleep apnea- hypopnea syndrome and returned today for CPAP therapy one month after pressure change follow-up. Sleep Study - Results Type of Sleep Study: Polysomnography (COMPLETED 01/28/23) Prior sleep studies: Yes Year and Where: 07/13/20 [facility]- split night CPAP Compliance Data - Data Reviewed with Patient Average duration of nightly device use: 2 HRS 7 MINS Compliance rate %: 10 (07/09/23-08/07/23; 20/30 days used) Current pressure setting (cmH2O): 7-10 Average residual AHI: 0.4 Central apnea: 0 Obstructive apnea: 0.1 Hypopnea: 0.2 Average large leak: 1.3 L/min Subjective Missed days of use due to: reports: other (Duty and watches; takes mask off when sleeping) Patient concerns: denies: aerophagia, mask discomfort, air blowing in eyes, mask leak noise, condensation in mask/hose, nasal congestion, dry mouth, nose, throat, epistaxis Observed to snore while using device: No Current pressure setting perceived as: comfortable On therapy, patient: reports: sleeping better, awakening more refreshed, being more awake and alert during the day, more rested overall. denies: drowsiness while driving Initial [place] Sleepiness Scale score: 5 (11/19/22) Current [place] Sleepiness Scale score: 5 (08/12/23) Allergies and Home Medications Known drug allergies: No Drug allergies reviewed: Yes Home medication list reviewed: Yes (no changes) Allergy and home medication list: Allergies No Known Drug Allergies Allergy (Verified 08/08/23 13:52) Review of Systems Review of systems same as previous: Yes (NO CHANGE) Physical Exam Vital signs obtained and entered by: BRANT Gallego MA Blood Pressure: 132/89 (RIGHT ARM) Cuff size: long Heart Rate: 88 O2 Saturation: 93 Height: 5 ft 10 in Weight: 312 lb 3.2 oz Body Mass Index: 44.8 BMI Classification: Morbidly Obese Impression and Plan 1. Obstructive Sleep Apnea-Hypopnea Syndrome, severe, with poor treatment com pliance and good apnea control. On CPAP therapy, the patient has better sleep quality and is more rested overall. He reports the mask on at least 67% of the time but finds that he takes it off while he is sleeping. 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 I encouraged him to continue to put the mask on every night and try and keep it on, replace it when he finds the mask off during the night. He voiced understanding and will follow-up in about 3 months or after he gets back from deployment. Patient's apnea severity and rationale for treatment to reduce apnea, improve sleep quality and reduce cardiovascular and cerebrovascular events was reviewed. 2. Obesity, unspecified. Currently patients BMI is 44.8. Obesity increases the risk of apnea, CPAP pressure requirements and overall health risks especially cardiovascular and diabetes. Thus patient is advised to lose weight. * Continue auto CPAP pressure at 7-10 cmH2O * Notify me if snoring with mask or feeling that the pressure is too much or too little * Attempt to lose weight * Call this office if any problems using CPAP * Return for follow up in 3 months, or sooner if concerns arise Counseling Topics: Spare mask, Weight loss health impact Follow up with Sleep Care in: 3 months Visit Type: In Office Time Spent with Patient (minutes): 15 Provider Statement: I spent 100% of the Face to Face Visit with the patient with greater than 50% spent counseling the patient and coordination of care.
[2023-08-12 08:48] VITALS: BP 132/89; O2SAT 93
== END 2023-08-12 08:05 | disposition home or self-care (01) ==
LOC: SC 08:04
PROVIDERS: ATTEND Nurse Practitioner Family
DX: G47.33 Obstructive sleep apnea (adult) (pediatric) (principal); E66.01 Morbid (severe) obesity due to excess calories; Z68.41 Body mass index [BMI] 40.0-44.9, adult
CPT/HCPCS: 99212